=== PATIENT | male | born 1970 | race African-American/Black ===

== ENCOUNTER 2017-04-29 14:40 | Outpatient (CLI) | payer OTHER | END 2017-04-29 14:41 | disposition home or self-care (01) | LOC: BICMRI 14:40 | PROVIDERS: ATTEND Family Medicine | DX: M25.561 Pain in right knee (principal); M25.562 Pain in left knee; M24.10 Other articular cartilage disorders, unspecified site ==

== ENCOUNTER 2019-08-21 13:00 | Outpatient (CLI) | payer OTHER ==
--- NOTE | 2019-08-21 13:59 | ULT ---
EXAM: US Testicular W Doppler PROVIDED CLINICAL HISTORY: Left-sided varicocele. COMPARISON: None FINDINGS: Testicles demonstrate a normal and symmetric appearance bilaterally without evidence of a testicular mass. Right testicle measures 4.1 cm x 1.8 cm x 2.9 cm with left distal measuring 4 cm x 1.8 cm x 2.4 cm Doppler evaluation of each testicle with spectral analysis and color flow evaluation demonstrates art erial and venous flow in each testicle. 2 small anechoic structures are seen in the left epididymal head largest measuring 0.3 cm most sugges tive of a small epididymal cysts. Right epididymis demonstrates a normal sonographic appearance. There are tubular anechoic vascular structure seen adjacent to each testicle which measure less than 3 mm. Anechoic tubular structures greater than 3 mm are not visualized to suggest varicocele. IMPRESSION: 1. Normal-appearing bilateral testicles. 2. Arterial and venous flow is documented in each testicle. 3. Small left epididymal cyst. 4. There are tubular anechoic structures adjacent to each testicle related to vascular structures, bu t these vessels do not measure greater than 3 mm to suggest varicocele on sonographic evaluation.
== END 2019-08-21 13:01 | disposition home or self-care (01) ==
LOC: BICULT 13:00
PROVIDERS: ATTEND Urology
DX: I86.1 Scrotal varices (principal); N50.89 Other specified disorders of the male genital organs; N50.3 Cyst of epididymis
CPT/HCPCS: 76870; 93976